=== PATIENT | male | born 1965 | race Caucasian/White ===

== ENCOUNTER 2022-04-25 13:45 | Emergency (ER) | payer SELFPAY ==
[~2022-04-25] VITALS: Ht 180.3 cm; Wt 90.7 kg
[2022-04-25 13:48] VITALS: BP 162/102
--- NOTE | 2022-04-25 13:48 | NUR ---
md valentino assessing pt in [facility] at this time
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
[2022-04-25 13:55] VITALS: BP 162/102
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
== END 2022-04-25 13:55 ==
LOC: MED 13:45
DX: M25.562 Pain in left knee (principal); I10 Essential (primary) hypertension; Z02.89 Encounter for other administrative examinations; V99.XXXA Unspecified transport accident, initial encounter; Y93.89 Activity, other specified; Y92.89 Other specified places as the place of occurrence of the external cause; Y99.8 Other external cause status
CPT/HCPCS: 99283